=== PATIENT | female | born 1995 | race Caucasian/White ===

== ENCOUNTER 2016-05-25 11:29 | Emergency (ER) | payer BC ==
[~2016-05-25] VITALS: Ht 165.1 cm; Wt 53.5 kg
--- NOTE | 2016-05-25 11:30 | NUR ---
Presents self to ed due to chest palpiation for 10 days, worst today. Denies chest pain. Pt aao3, in no acute dsitress, respiration even and unlabored. Skin is warm to touch and non diaphoretic. Patient afebrile. VSs. Gowned and placed patient on tele monitor,
--- NOTE | 2016-05-25 11:30 | NUR ---
iv accessed to [facility], blood sample sent.
--- NOTE | 2016-05-25 11:32 | NUR ---
Md Tapia at for jj
--- NOTE | 2016-05-25 11:40 | NUR ---
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
[2016-05-25] MEDS ORDERED: IV NS 0.9% 1,000 ML ONE ×2 (11:52→12:25)
[2016-05-25] MEDS ORDERED: IV SET PRIMARY PUMP SET 1 EA INFUS.SET MC ONE ×2 (11:52→12:25)
[2016-05-25 11:57] LABS: BASOPHILS % (AUTO) 0.7 % (0.0-2.0); EOSINOPHILS # (AUTO) 0.1 /CMM (0.0-0.7); HEMATOCRIT 46 % (33-45); HEMOGLOBIN 15.1 g/dL (11.5-14.8); LYMPHOCYTES # (AUTO) 2.4 /CMM (0.8-4.8); LYMPHOCYTES % (AUTO) 42.7 % (20.0-44.0); MEAN CORPUSCULAR HEMOGLOBIN 30 PG (26.0-33.0); MEAN CORPUSCULAR HGB CONC 33 g/dl (31.0-36.0); MEAN CORPUSCULAR VOLUME 91 fL (82-100); MONOCYTES # (AUTO) 0.4 /CMM (0.1-1.30); MONOCYTES % (AUTO) 7.3 % (2.0-12.0); NEUTROPHILS # (AUTO) 2.8 /CMM (1.8-8.9); NEUTROPHILS % (AUTO) 48.3 % (43.0-81.0); PLATELET COUNT (AUTO) 332 /CMM (150-450); RDW COEFFICIENT OF VARIATION 11.8 (11.5-15.0); RED BLOOD CELL COUNT(AUTO) 5.09 MIL/uL (4.0-5.2); WHITE BLOOD COUNT (AUTO) 5.7 K/uL (4.3-11.0)
[2016-05-25] MEDS: IV NS 0.9% 1,000 ML BAG IV ONE ×2 (11:57→12:33)
--- NOTE | 2016-05-25 11:57 | NUR ---
iv ns started as ordered
--- NOTE | 2016-05-25 12:01 | NUR ---
jorge sample sent to lab
--- NOTE | 2016-05-25 12:04 | NUR ---
prosthetics lab technician at [facility] for chest xray
[2016-05-25 12:09] LABS: CALCIUM, SERUM 9.5 mg/dL (8.5-10.1); CARBON DIOXIDE 28 mmol/L (21-32); CHLORIDE 105 mmol/L (98-107); CREATININE 0.7 mg/dL (0.6-1.3); GFR 105 mL/min (>60); GLUCOSE 89 mg/dL (74-106); POTASSIUM 3.7 mmol/L (3.5-5.1); SODIUM SERUM 139 mmol/L (136-145); UREA NITROGEN, BLOOD 9 mg/dL (7-18)
[2016-05-25 12:11] LABS: MAGNESIUM 2.3 mg/dL (1.8-2.4)
[2016-05-25 12:14] LABS: ALANINE AMINOTRANSFERASE 18 U/L (12-78); ALKALINE PHOSPHATASE 64 U/L (46-116); ASPARTATE AMINOTRANSFERASE 17 U/L (15-37); BILIRUBIN,DIRECT 0.1 mg/dL (0.0-0.2); BILIRUBIN,TOTAL 0.7 mg/dL (0.2-1.0); TOTAL PROTEIN, SERUM 7.5 g/dL (6.4-8.2)
[2016-05-25 12:16] LABS: D-DIMER 0.19 mg/L(FEU (0.17-0.50); INR 0.92 (0.87-1.13); PROTHROMBIN TIME 9.8 SECS (9.5-12.7)
[2016-05-25 12:19] LABS: APPEARANCE,URINE Clear (CLEAR); BILIRUBIN,URINE Negative (NEGATIVE); BLOOD, URINE Negative Ery/uL (NEGATIVE); COLOR,URINE Yellow (YELLOW); KETONES,URINE Negative (NEGATIVE); LEUKOCYTE ESTERASE ,URINE Negative (NEGATIVE); NITRITE, URINE Negative (NEGATIVE); PROTEIN,URINE Negative (NEGATIVE); UGLUCOSE Negative (NEGATIVE); UROBILINOGEN,URINE 0.2 EU/dL (0.2)
[2016-05-25 12:21] LABS: TROPONIN I < 0.017 ng/mL (0.00-0.056)
[2016-05-25 12:24] LABS: THYROID STIMULATING HORMONE 1.867 uIU/mL (0.358-3.74)
[2016-05-25 12:28] LABS: PREGNANCY TEST URINE QUAL NEGATIVE (NEGATIVE)
[2016-05-25 12:37] LABS: CANNABINOID, URINE NEGATIVE (NEGATIVE); PHENCYCLIDINE SCREEN,URINE NEGATIVE (NEGATIVE)
--- NOTE | 2016-05-25 12:37 | NUR ---
Note stephen in ED - 05/25/16 at 1237 by REBECCA IV removed. Catheter intact and site benign. Pressure and 4x4 applied to site. No bleeding noted.
--- NOTE | 2016-05-25 13:11 | NUR ---
IV removed. Catheter intact and site benign. Pressure and 4x4 applied to site. No bleeding noted.
--- NOTE | 2016-05-25 13:12 | NUR ---
applied technologist at [facility] for 2nd ekg
--- NOTE | 2016-05-25 13:22 | NUR ---
IV removed. Catheter intact and site benign. Pressure and 4x4 applied to site. No bleeding noted.Patient discharged to home in stable condition. Written and verbal after care instructions given. Patient verbalizes understanding of instruction.
[2016-05-25 13:23] VITALS: BP 125/65
== END 2016-05-25 13:23 | disposition home or self-care (01) ==
LOC: ER 11:31
DX: R00.2 Palpitations (principal); E78.00 Pure hypercholesterolemia, unspecified; E78.4 Other hyperlipidemia; J45.909 Unspecified asthma, uncomplicated; F90.9 Attention-deficit hyperactivity disorder, unspecified type; R79.1 Abnormal coagulation profile
CPT/HCPCS: 36415; 71010; 80048; 80076; 80305; 81001; 83735; 84439; 84443; 84484; 84703; 85025; 85378; 85730; 93005; 96360; 96361; 99285; A4606; J7030 ×2; Z7610; 81000-TC